=== PATIENT | female | born 1980 | race Caucasian/White ===

== ENCOUNTER 2018-12-14 03:41 | Emergency (ER) | payer BC ==
[~2018-12-14] VITALS: Ht 170.2 cm; Wt 82.6 kg
[2018-12-14 03:47] VITALS: Ht 170.2 cm; Wt 82.6 kg
[2018-12-14 04:22] LABS: microscopic required? NO
[2018-12-14 04:38] LABS: BASOPHIL % 0.5 % (0-2); CALCIUM 9.1 mg/dL (8.5-10.1); CHLORIDE SERUM 101 mmol/L (98-107); CREATININE SERUM 0.8 mg/dL (0.6-1.0); GFR1 > 60 mL/min; GLUCOSE SERUM 87 mg/dL (74-106); PLATELET COUNT 335 x10^3mcL (130-400); POTASSIUM SERUM 3.5 mmol/L (3.5-5.1); RED CELL DISTRIBUTION WIDTH 12.5 % (11.5-14.5); SODIUM SERUM 136 mmol/L (136-145)
[2018-12-14 04:43] LABS: ALKALINE PHOSPHATASE 54 U/L (46-116); ALT/SGPT 17 U/L (14-59); AST/SGOT 14 U/L (15-37); BILIRUBIN TOTAL 0.3 mg/dL (0.20-1.00); LIPASE 152 IU/L (73-393); TOTAL PROTEIN, SERUM 7.8 g/dL (6.4-8.2)
[2018-12-14 04:52] LABS: UA SPECIFIC GRAVITY 1.015 (1.005-1.035)
[2018-12-14 04:53] LABS: ALBUMIN 3.2 g/dL (3.4-5.0)
[2018-12-14 04:53] LABS: urine erythrocyte NEGATIVE (NEGATIVE)
[2018-12-14 07:14] VITALS: BP 117/71
== END 2018-12-14 08:08 | disposition home or self-care (01) ==
LOC: ED 03:41
PROVIDERS: Emergency Medicine
DX: K59.00 Constipation, unspecified (principal); R10.31 Right lower quadrant pain; J45.909 Unspecified asthma, uncomplicated; K58.9 Irritable bowel syndrome, unspecified
CPT/HCPCS: J1885; J2405; J7030